=== PATIENT | female | born 1955 | race Caucasian/White ===

== ENCOUNTER 2021-03-07 11:19 | Emergency (ER) | payer BC, OTHER ==
--- OUTSIDE RECORDS SUMMARY | 2021-03-07 11:22 | XMS REPORT | Continuity of Care Document ---
:[address] [facility] t Address [address] [place] [address] Care Team Providers Name Role Phone Unavailable Unavailable Unavailable Problems This patient has no known problems. Allergies, Adverse Reactions, Alerts This patient has no known allergies or adverse reactions. Medications This patient has no known medications. Procedures This patient has no known procedures. Results This patient has no known results.
[2021-03-07] MEDS ORDERED: NA CHLORIDE 0.9% 1,000 ML ONE (12:55)
[2021-03-07 12:56] LABS: Urine Blood Trace-lysed (Negative); Urine Glucose 3+ (Negative); Urine Protein Negative (Negative); Urine Specific Gravity 1.015 (1.005-1.030); Urine pH 5.5 (5.0-7.0)
[2021-03-07 12:57] LABS: Absolute Lymphocytes (CBC) 1.7 K/uL (0.7-4.9); Basophils % 0.7 % (0-1.3); Lymphocytes % 20.9 % (15.3-44.8); MPV 10.3 fL (7.6-11.3)
[2021-03-07 13:24] LABS: BUN Blood Urea Nitrogen 11 mg/dL (7-18); Bicarbonate 27 mmol/L (21-32); Glucose Level 262 mg/dL (74-106); Potassium 3.7 mmol/L (3.5-5.1); Sodium Level 136 mmol/L (136-145)
--- NOTE | 2021-03-07 13:56 | ER ---
Nurse's Notes [facility] Name: Leslie Bautista Age: 65 yrs Sex: Female : 1955 Arrival Date: 03/07/2021 Time: 11:23 Bed 8 Private MD: Diagnosis: Dehydration;Hyperglycemia, unspecified Presentation: 03/07 11:29 Chief complaint: Sent by PCP Jero for high blood sugar yesterday and ketones in hb urine today. Pt c/o low back pain 04/05. On doxycycline day 2 for UTI. Coronavirus screen: At this time, the client does not indicate any symptoms associated with coronavirus-19. Ebola Screen: No symptoms or risks identified at this time. Initial Sepsis Screen: Does the patient meet any 2 criteria? No. Patient's initial sepsis screen is negative. Does the patient have a suspected source of infection? No. Patient's initial sepsis screen is negative. Risk Assessment: Do you want to hurt yourself or someone else? Patient reports no desire to harm self or others. Onset of symptoms was March 06, 2021. 11:29 Method Of Arrival: Ambulatory hb 11:29 Acuity: ELAINE 3 hb Triage Assessment: 14:12 General: Behavior is calm, cooperative, appropriate for age. ld1 Historical: - Allergies: 11:32 NKDA; hb - Home Meds: 11:32 carvedilol 12.5 mg Oral tab 1 tab 2 times per day [Active]; cephalexin 500 mg Oral tab hb 1 tab every 12 hours [Active]; furosemide 40 mg Oral tab 1 tab once daily [Active]; Klor-Con M20 20 mEq Oral TbTQ 1 tab once daily [Active]; Kombiglyze XR 5-1,000 mg Oral TM24 1 tab once daily [Active]; levothyroxine 75 mcg tab 1 tab once daily [Active]; trazodone 50 mg Oral tab 1 tab daily [Active]; 11:33 Tresiba FlexTouch U-100 100 unit/mL (3 mL) subcutaneous inpn daily [Active]; hb - PMHx: 11:32 Diabetes - NIDDM; Hypertension; hb - PSHx: 11:32 left arm; hb - Immunization history:: Adult Immunizations up to date. - Social history:: Smoking status: Patient denies any tobacco usage or history of. Screenin:24 Abuse screen: Denies threats or abuse. Denies injuries from another. Nutritional ld1 screening: No deficits noted. Tuberculosis screening: No symptoms or risk factors identified. Fall Risk None identified. Assessment: 12:24 General: Appears in no apparent distress. comfortable. Pain: Complains of pain in ld1 lumbar area, left low back and right low back Pain does not radiate. Pain currently is 6 out of 10 on a pain scale. Quality of pain is described as throbbing, Pain began 2-3 days ago. Is continuous. Neuro: Level of Consciousness is awake, alert, obeys commands, Oriented to person, place, time, situation. Cardiovascular: Capillary refill < 3 seconds Patient's skin is warm and dry. Respiratory: Airway is patent Respiratory effort is even, unlabored, Respiratory pattern is regular, symmetrical. GI: Abdomen is flat, non-distended. : No signs and/or symptoms were reported regarding the genitourinary system. Denies burning with urination. EENT: No signs and/or symptoms were reported regarding the EENT system. Derm: No signs and/or symptoms reported regarding the dermatologic system. Musculoskeletal: No signs and/or symptoms reported regarding the musculoskeletal system. 13:15 Reassessment: Patient appears in no apparent distress at this time. No changes from sv previously documented assessment. Patient and/or family updated on plan of care and expected duration. Pain level reassessed. Patient is alert, oriented x 3, equal unlabored respirations, skin warm/dry/pink. Pt reports being hungry, has not eaten today. Informed Jamie TELLEZ, diet ordered. Vital Signs: 11:29 BP 166 / 82; Pulse 118; Resp 20; Temp 98.5; Pulse Ox 100% on R/A; Pain 6/10; hb 12:24 BP 118 / 85; Pulse 97; Resp 18; Temp 98.5(O); Pulse Ox 98% on R/A; Weight 78.02 kg; ld1 Height 5 ft. 2 in. (157.48 cm); Pain 6/10; 13:18 BP 104 / 71; Pulse 77; Resp 18; Pulse Ox 100% ; sv 12:24 Body Mass Index 31.46 (78.02 kg, 157.48 cm) ld1 ED Course: 11:23 Patient arrived in ED. ds1 11:31 Triage completed. hb 11:32 Arm band placed on. hb 12:07 [facility] Wells [facility] jr8 12:07 Davion Rubio MD is Attending Physician. jr8 12:21 Maribell Brito, RN is Primary Nurse. ld1 12:24 Patient has correct armband on for positive identification. Bed in low position. Call ld1 light in reach. Side rails up X 1. Pulse ox on. NIBP on. Door closed. Noise minimized. Warm blanket given. 12:24 No provider procedures requiring assistance completed. ld1 14:21 IV discontinued, bleeding controlled, No redness/swelling at site. ld1 Administered Medications: 12:50 Drug: NS 0.9% 1000 ml Route: IV; Rate: 1000 ml; Site: right antecubital; ld1 Outcome: 13:56 Discharge ordered by . jr8 14:13 Discharged to home ambulatory. ld1 14:13 Condition: good 14:13 Discharge instructions given to patient, family, Instructed on discharge instructions, follow up and referral plans. medication usage, Demonstrated understanding of instructions, follow-up care, medications. 14:22 Patient left the ED. ld1 Signatures: Reyna Wolff RN RN Vashti Garay ds1 Jamie Wells PA PA jr8 Julia Mercado RN RN Maribell Brito, RN RN ld1 Corrections: (The following items were deleted from the chart) 11:46 11:29 BP 166 / 82; Pulse 18bpm; Resp 20bpm; Pulse Ox 100% RA; Temp 98.5F; Pain 6/10; hb hb
--- NOTE | 2021-03-07 13:57 | EDPHYS ---
Physician Documentation [facility] Name: Leslie Bautista Age: 65 yrs Sex: Female : 1955 Arrival Date: 03/07/2021 Time: 11:23 Bed 8 Private MD: ED Physician Davion Rubio HPI: 03/07 13:49 This 65 yrs old Female presents to ER via Ambulatory with complaints of High jr8 Blood Sugar. 13:49 Onset: The symptoms/episode began/occurred gradually. Associated signs and symptoms: jr8 Pertinent positives: None. Current symptoms: In the emergency department the patient's symptoms are unchanged from the initial presentation. It is unknown whether or not the patient has had similar symptoms in the past. The patient has been recently seen by a physician: the patient's primary care provider. Patient by PCP today for further evaluation of hyperglycemia after she tested positive for ketones in urine. Stated that she saw PCP yesterday and had her medicine changed up. Drank more water yesterday but without improvement. Has also been having back pain on right side which she says is usually a UTI. Was also started on Abx for that 2 days ago . Historical: - Allergies: 11:32 NKDA; hb - Home Meds: 11:32 carvedilol 12.5 mg Oral tab 1 tab 2 times per day [Active]; cephalexin 500 mg Oral tab hb 1 tab every 12 hours [Active]; furosemide 40 mg Oral tab 1 tab once daily [Active]; Klor-Con M20 20 mEq Oral TbTQ 1 tab once daily [Active]; Kombiglyze XR 5-1,000 mg Oral TM24 1 tab once daily [Active]; levothyroxine 75 mcg tab 1 tab once daily [Active]; trazodone 50 mg Oral tab 1 tab daily [Active]; 11:33 Tresiba FlexTouch U-100 100 unit/mL (3 mL) subcutaneous inpn daily [Active]; hb - PMHx: 11:32 Diabetes - NIDDM; Hypertension; hb - PSHx: 11:32 left arm; hb - Immunization history:: Adult Immunizations up to date. - Social history:: Smoking status: Patient denies any tobacco usage or history of. ROS: 13:49 Eyes: Negative for injury, pain, redness, and discharge, ENT: Negative for injury, jr8 pain, and discharge, Neck: Negative for injury, pain, and swelling, Cardiovascular: Negative for chest pain, palpitations, and edema, Respiratory: Negative for shortness of breath, cough, wheezing, and pleuritic chest pain, Abdomen/GI: Negative for abdominal pain, nausea, vomiting, diarrhea, and constipation, MS/Extremity: Negative for injury and deformity, Skin: Negative for injury, rash, and discoloration, Neuro: Negative for headache, weakness, numbness, tingling, and seizure. 13:49 Back: Positive for pain at rest, pain with movement, of the right low back. Exam: 13:49 Constitutional: This is a well developed, well nourished patient who is awake, alert, jr8 and in no acute distress. Cardiovascular: Regular rate and rhythm with a normal S1 and S2. No gallops, murmurs, or rubs. Normal PMI, no JVD. No pulse deficits. Respiratory: Lungs have equal breath sounds bilaterally, clear to auscultation and percussion. No rales, rhonchi or wheezes noted. No increased work of breathing, no retractions or nasal flaring. Abdomen/GI: Soft, non-tender, with normal bowel sounds. No distension or tympany. No guarding or rebound. No evidence of tenderness throughout. Back: No spinal tenderness. No costovertebral tenderness. Full range of motion. Skin: Warm, dry with normal turgor. Normal color with no rashes, no lesions, and no evidence of cellulitis. MS/ Extremity: Pulses equal, no cyanosis. Neurovascular intact. Full, normal range of motion. Neuro: Awake and alert, GCS 15, oriented to person, place, time, and situation. Cranial nerves II-XII grossly intact. Motor strength 5/5 in all extremities. Sensory grossly intact. Cerebellar exam normal. Normal gait. Vital Signs: 11:29 BP 166 / 82; Pulse 118; Resp 20; Temp 98.5; Pulse Ox 100% on R/A; Pain 6/10; hb 12:24 BP 118 / 85; Pulse 97; Resp 18; Temp 98.5(O); Pulse Ox 98% on R/A; Weight 78.02 kg; ld1 Height 5 ft. 2 in. (157.48 cm); Pain 6/10; 13:18 BP 104 / 71; Pulse 77; Resp 18; Pulse Ox 100% ; sv 12:24 Body Mass Index 31.46 (78.02 kg, 157.48 cm) ld1 MDM: 12:07 Patient medically screened. jr8 13:55 Data reviewed: vital signs, nurses notes, lab test result(s). Data interpreted: Pulse jr8 oximetry: on room air is 100 %. Interpretation: normal. Counseling: I had a detailed discussion with the patient and/or guardian regarding: the historical points, exam findings, and any diagnostic results supporting the discharge/admit diagnosis, lab results, the need for outpatient follow up, a family practitioner, to return to the emergency department if symptoms worsen or persist or if there are any questions or concerns that arise at home. 03/07 11:41 Order name: Glucose, Ancillary Testing; Complete Time: 12:07 EDMS 03/07 12:29 Order name: CBC with Diff; Complete Time: 13:32 [facility] 03/07 12:29 Order name: Basic Metabolic Panel; Complete Time: 13:32 [facility] 03/07 12:29 Order name: Ketone, Serum; Complete Time: 13:32 [facility] 03/07 12:56 Order name: Urine Dipstick-Ancillary; Complete Time: 12:57 EDMS 03/07 12:29 Order name: Urine Dipstick-Ancillary (obtain specimen); Complete Time: 12:50 [facility] 03/07 13:10 Order name: Diet Ada 1800 Garret; Complete Time: 13:11 hb Administered Medications: 12:50 Drug: NS 0.9% 1000 ml Route: IV; Rate: 1000 ml; Site: right antecubital; ld1 Disposition: 03/08 09:21 Co-signature as Attending Physician, Davion Rubio MD I agree with the assessment and tae plan of care. Disposition: 03/07/21 13:56 Discharged to Home. Impression: Dehydration, Hyperglycemia, unspecified. - Condition is Stable. - Discharge Instructions: Dehydration, Adult, Hyperglycemia, Blood Glucose Monitoring, Adult. - Medication Reconciliation Form, Thank You Letter, Antibiotic Education, Prescription Opioid Use form. - Follow up: Private Physician; When: 2 - 3 days; Reason: Recheck today's complaints, Continuance of care, Re-evaluation by your physician. - Problem is new. - Symptoms have improved. Signatures: Dispatcher [employer] [facility] Davion Rubio MD MD cha Roszak, Josh, PA PA jr8 Julia Mercado, RN RN Maribell Brito RN RN ld1 Corrections: (The following items were deleted from the chart) 03/07 14:22 13:56 03/07/2021 13:56 Discharged to Home. Impression: Dehydration; Hyperglycemia, ld1 unspecified. Condition is Stable. Forms are Medication Reconciliation Form, Thank You Letter, Antibiotic Education, Prescription Opioid Use. Follow up: Private Physician; When: 2 - 3 days; Reason: Recheck today's complaints, Continuance of care, Re-evaluation by your physician. Problem is new. Symptoms have improved. jr8
[2021-03-07 14:55] VITALS: TEMP 98.5
[2021-03-07 14:59] VITALS: BP 104/71; O2SAT 100
== END 2021-03-07 14:22 | disposition home or self-care (01) ==
LOC: ER 11:19
DX: E86.0 Dehydration (principal); E11.65 Type 2 diabetes mellitus with hyperglycemia; I10 Essential (primary) hypertension; Z79.4 Long term (current) use of insulin
CPT/HCPCS: 85025; 80048; 36415; 82010; 82947; 81003; 99283; J7030